=== PATIENT | male | born 1975 | race Caucasian/White ===

== ENCOUNTER 2023-02-28 07:52 | Inpatient (IN) | payer MEDICAID ==
[~2023-02-28] VITALS: Ht 180.3 cm; Wt 75.4 kg
[2023-02-28] MEDS: ACETAMINOPHEN 325MG TABLET PO ONE (08:15)
[2023-02-28 09:21] LABS: BASOPHILS % 0.5 % (0.0-2.0); DIFFERENTIAL COMMENT 0; EOSINOPHILS % 1.1 % (0.0-5.0); HEMATOCRIT. 43.8 % (42.0-52.0); HEMOGLOBIN. 14.8 g/dL (14.0-18.0); LYMPHOCYTES % 9.9 % (20.0-50.0); MEAN CORPUSCULAR HEMOGLOBIN 28.5 pg (28.0-32.0); MEAN CORPUSCULAR HGB CONC 33.8 g/dL (31.0-37.0); MEAN CORPUSCULAR VOLUME 84.3 fL (80.0-94.0); MEAN PLATELET VOLUME 7.4 fl (7.4-10.4); MONOCYTES % 12.3 % (2.0-8.0); NEUTROPHILS % 76.2 % (40.0-76.0); PLATELET 622 x1000/uL (130-400); RED BLOOD CELL COUNT 5.19 mill/uL (4.7-6.1); RED CELL DISTRIBUTION WIDTH 14.6 % (11.6-14.6); WHITE BLOOD COUNT 11.7 x1000/uL (4.5-11.0)
[2023-02-28 09:31] LABS: CHLORIDE 85 mEq/L (98-107); INDEX HEMOLYSI 1 (1-3); INDEX ICTERIC 1 (1-4); INDEX LIPEMIC 1 (1-3); POTASSIUM 3.7 mEq/L (3.5-5.1); SODIUM 125 mEq/L (136-145)
[2023-02-28 09:33] LABS: PROTHROMBIN TIME 10.3 sec (9.6-11.0)
[2023-02-28 09:40] LABS: ALANINE AMINOTRANSFERASE 137 IU/L (13-61); ALBUMIN 3.9 g/dL (3.4-5.0); ASPARTATE AMINOTRANSFERASE 200 IU/L (15-37); BILIRUBIN TOTAL 1.6 mg/dL (0.1-1.0); CALCIUM 9.5 mg/dL (8.5-10.1); CARBON DIOXIDE 33 mEq/L (21-32); CREATININE 1.1 mg/dL (0.6-1.3); GLUCOSE 113 mg/dL (70-105); PROTEIN TOTAL 8.9 g/dL (6.0-8.3); TROPONIN I HIGH SENSITIVITY 49 ng/L (<78); UREA NITROGEN BLOOD 17 mg/dL (7-21)
[2023-02-28] MEDS ORDERED: MAGNESIUM/ALUMINUM HYDROXIDE/SIMETHICONE 30ML UDC PO PRN (13:00)
[2023-02-28] MEDS ORDERED: SODIUM CHLORIDE 0.9% 1,000 ML IV ONE (13:00)
[2023-02-28] MEDS ORDERED: CLONIDINE 0.1MG TABLET PO PRN (13:00)
[2023-02-28] MEDS ORDERED: ACETAMINOPHEN 325MG TABLET PO PRN ×2 (13:00)
[2023-02-28] MEDS ORDERED: LORAZEPAM 0.5MG TABLET PO PRN (13:00)
[2023-02-28] MEDS ORDERED: ONDANSETRON HCL 4MG/2ML INJ IV PRN (13:00)
[2023-02-28] MEDS ORDERED: VANCOMYCIN 1.5GM/250ML IVPB 250 ML IV NR (13:30)
[2023-02-28] MEDS ORDERED: KETOROLAC 15MG/ML VIAL IV PRN (15:30)
[2023-02-28 15:49] LABS: AMMONIA 17 uMol/L (<32)
[2023-02-28 15:52] LABS: TROPONIN I HIGH SENSITIVITY 37 ng/L (<78)
[2023-02-28] MEDS ORDERED: VANCOMYCIN 750MG PREMIX 150 ML IV SCH (21:00)
[2023-02-28] MEDS: QUETIAPINE FUMARATE 50MG TABLET PO SCH (21:00)
[2023-03-01] MEDS ORDERED: VANCOMYCIN 1G PREMIX 200 ML IV SCH ×2 (04:00→23:00)
[2023-03-01] MEDS ORDERED: PIPERACILLIN/TAZOBACTAM 3.375G in DEXT 5% WATER 50ML IV SCH (06:00)
[2023-03-01] MEDS: PANTOPRAZOLE SODIUM 40 MG/VIAL IV SCH ×2 (09:00→09:52)
[2023-03-01] MEDS: QUETIAPINE FUMARATE 50MG TABLET PO SCH ×2 (09:53→20:54)
[2023-03-01] MEDS: ENOXAPARIN 40MG/0.4ML SYR SUBCUT SCH ×2 (09:53→13:21)
[2023-03-01] MEDS: PIPERACILLIN/TAZ 3.375G PREMIX 50 ML IV SCH ×2 (10:07→10:10)
[2023-03-01] MEDS ORDERED: DEXT 5%/0.9% NACL 1,000 ML IV ONE (11:15)
[2023-03-01 12:10] VITALS: BP 125/88; PULSE 96; RESP 18; TEMP 97.8
[2023-03-01 12:22] VITALS: BP 125/88; PULSE 96; RESP 18; TEMP 97.8
[2023-03-01] MEDS ORDERED: QUET100T PO (13:11)
[2023-03-01] MEDS ORDERED: VANCOMYCIN 1.25GM PMX (XELLIA) 250 ML IV NR (14:00)
[2023-03-01 16:00] VITALS: BP 133/88; PULSE 98; RESP 18; TEMP 97.7
[2023-03-01 16:05] LABS: CLARITY URINE CLEAR (CLEAR); COLOR URINE YELLOW (YELLOW); GLUCOSE URINE NEGATIVE (NEGATIVE); KETONES URINE 2+ (NEGATIVE); LEUKOCYTE ESTERASE URINE NEGATIVE (NEGATIVE); NITRITE URINE NEGATIVE (NEGATIVE); OCCULT BLOOD URINE TRACE (NEGATIVE); PH URINE 5.5 (4.5-8.0); PROTEIN URINE NEGATIVE (NEGATIVE); SPECIFIC GRAVITY URINE 1.014 (1.005-1.030); UROBILINOGEN URINE 0.2 E.U./dL (0.2-1.0)
[2023-03-01 17:12] LABS: BACTERIA URINE 1+; RBC URINE 0-2 /hpf (0-2); SQUAMOUS EPITHELIAL CELL URINE RARE /lpf (RARE/1+); WBC URINE 0-2 /hpf (0-2)
[2023-03-01 17:19] LABS: SODIUM URINE RANDOM 6 mEq/L
[2023-03-01 17:27] LABS: *AMPHETAMINES SCREEN URINE NEGATIVE (NEGATIVE); *BARBITURATES SCREEN URINE NEGATIVE (NEGATIVE); *BENZODIAZEPINES SCREEN URINE NEGATIVE (NEGATIVE); *COCAINE SCREEN URINE PRESUMTIVE POSITIVE (NEGATIVE); CANNABINOID URINE SCREEN PRESUMTIVE POSITIVE (NEGATIVE); ECSTASY MDMA SCREEN URINE NEGATIVE (NEGATIVE); METHADONE URINE SCREEN NEGATIVE (NEGATIVE); OPIATES URINE SCREEN NEGATIVE (NEGATIVE); PHENCYCLIDINE URINE SCREEN NEGATIVE (NEGATIVE)
[2023-03-01 17:41] LABS: OSMOLALITY URINE 483 mOsm/kg (500-850)
[2023-03-01 17:56] LABS: HEMATOCRIT 41.3 % (42.0-52.0); HEMOGLOBIN 13.8 g/dL (14.0-18.0); MEAN CORPUSCULAR HEMOGLOBIN 28.3 pg (28.0-32.0); MEAN CORPUSCULAR HGB CONC 33.5 g/dL (31.0-37.0); MEAN CORPUSCULAR VOLUME 84.4 fL (80.0-94.0); PLATELET 548 x1000/uL (130-400); RED BLOOD CELL COUNT 4.89 mill/uL (4.7-6.1); RED CELL DISTRIBUTION WIDTH 14.7 % (11.6-14.6); WHITE BLOOD COUNT 12.2 x1000/uL (4.5-11.0)
[2023-03-01 18:11] LABS: CHLORIDE 89 mEq/L (98-107); INDEX HEMOLYSI 1 (1-3); INDEX ICTERIC 1 (1-4); INDEX LIPEMIC 1 (1-3); POTASSIUM 3.6 mEq/L (3.5-5.1); SODIUM 126 mEq/L (136-145)
[2023-03-01 18:18] LABS: CARBON DIOXIDE 28 mEq/L (21-32); CREATININE 0.9 mg/dL (0.6-1.3); GLUCOSE 78 mg/dL (70-105); PHOSPHORUS 4.1 mg/dL (2.5-4.9); UREA NITROGEN BLOOD 18 mg/dL (7-21)
[2023-03-01] MEDS: SODIUM CHLORIDE 0.9% 1,000 ML IV SCH (18:29)
[2023-03-01] MEDS ORDERED: METOCLOPRAMIDE HCL 5MG TABLET PO PRN (18:30)
[2023-03-01 20:00] VITALS: BP 172/113; PULSE 101; RESP 20; TEMP 97.9
[2023-03-01] MEDS: PIPERACILLIN/TAZOBACTAM 3.375G in DEXT 5% WATER 50ML IV SCH (22:54)
[2023-03-02] VITALS: BP 107/66; PULSE 88; RESP 20; TEMP 97.5
[2023-03-02] MEDS ORDERED: VANCOMYCIN 1G PREMIX 200 ML IV SCH ×2 (02:00→21:00)
[2023-03-02 04:00] VITALS: BP 132/89; PULSE 91; RESP 20; TEMP 96.3
[2023-03-02] MEDS: PIPERACILLIN/TAZOBACTAM 3.375G in DEXT 5% WATER 50ML IV SCH (06:37)
[2023-03-02] MEDS: SODIUM CHLORIDE 0.9% 1,000 ML IV SCH ×2 (06:37→20:24)
[2023-03-02 07:41] LABS: HEMATOCRIT. 42.6 % (42.0-52.0); HEMOGLOBIN. 14.4 g/dL (14.0-18.0); MEAN CORPUSCULAR HEMOGLOBIN 28.8 pg (28.0-32.0); MEAN CORPUSCULAR HGB CONC 33.9 g/dL (31.0-37.0); MEAN PLATELET VOLUME 7.4 fl (7.4-10.4); PLATELET 518 x1000/uL (130-400); RED BLOOD CELL COUNT 5.02 mill/uL (4.7-6.1); RED CELL DISTRIBUTION WIDTH 14.7 % (11.6-14.6); WHITE BLOOD COUNT 12.1 x1000/uL (4.5-11.0)
[2023-03-02 08:00] VITALS: BP 108/70; PULSE 102; RESP 20; TEMP 97.3
[2023-03-02 08:14] LABS: DIFFERENTIAL COMMENT 1
[2023-03-02 08:21] LABS: CHLORIDE 90 mEq/L (98-107); INDEX HEMOLYSI 3 (1-3); INDEX ICTERIC 1 (1-4); INDEX LIPEMIC 1 (1-3); SODIUM 126 mEq/L (136-145)
[2023-03-02 08:31] LABS: ALANINE AMINOTRANSFERASE 89 IU/L (13-61); ALBUMIN 3.4 g/dL (3.4-5.0); ASPARTATE AMINOTRANSFERASE 79 IU/L (15-37); BILIRUBIN TOTAL 1.1 mg/dL (0.1-1.0); CALCIUM 9.2 mg/dL (8.5-10.1); CARBON DIOXIDE 26 mEq/L (21-32); CREATININE 0.9 mg/dL (0.6-1.3); GLUCOSE 116 mg/dL (70-105); PHOSPHORUS 3.8 mg/dL (2.5-4.9); PROTEIN TOTAL 7.4 g/dL (6.0-8.3); UREA NITROGEN BLOOD 18 mg/dL (7-21)
[2023-03-02] MEDS: QUETIAPINE FUMARATE 50MG TABLET PO SCH ×2 (09:00→20:24)
[2023-03-02] MEDS ORDERED: INFLUENZA VACCINE 05/PF 0.5 ML SYRINGE IM ONE (09:00)
[2023-03-02] MEDS: PANTOPRAZOLE SODIUM 40 MG/VIAL IV SCH (09:08)
[2023-03-02 12:00] VITALS: BP 114/78; PULSE 74; RESP 17; TEMP 97.9
[2023-03-02] MEDS: ENOXAPARIN 40MG/0.4ML SYR SUBCUT SCH (12:15)
[2023-03-02 16:00] VITALS: BP 127/79; PULSE 85; RESP 18; TEMP 96.9
[2023-03-02 16:38] LABS: T4 FREE 1.49 ng/dL (0.76-1.46); THYROID STIMULATING HORMONE 1.1 uIU/mL (0.36-3.74)
[2023-03-02 17:11] LABS: PLATELET ESTIMATE INCREASED
[2023-03-02 20:00] VITALS: BP 123/77; PULSE 92; RESP 18; TEMP 97.6
[2023-03-03] VITALS: BP 129/80; PULSE 87; RESP 18; TEMP 98
[2023-03-03 04:00] VITALS: BP 127/84; PULSE 77; RESP 18; TEMP 98.6
[2023-03-03 06:31] LABS: HEMATOCRIT. 36.4 % (42.0-52.0); HEMOGLOBIN. 12.4 g/dL (14.0-18.0); MEAN CORPUSCULAR HEMOGLOBIN 28.9 pg (28.0-32.0); MEAN CORPUSCULAR HGB CONC 34.2 g/dL (31.0-37.0); MEAN CORPUSCULAR VOLUME 84.6 fL (80.0-94.0); MEAN PLATELET VOLUME 7.2 fl (7.4-10.4); PLATELET 535 x1000/uL (130-400); RED CELL DISTRIBUTION WIDTH 14.6 % (11.6-14.6); WHITE BLOOD COUNT 9.2 x1000/uL (4.5-11.0)
[2023-03-03 06:40] LABS: DIFFERENTIAL COMMENT 1
[2023-03-03 06:50] LABS: CHLORIDE 95 mEq/L (98-107); INDEX HEMOLYSI 1 (1-3); INDEX ICTERIC 1 (1-4); INDEX LIPEMIC 1 (1-3); POTASSIUM 3.8 mEq/L (3.5-5.1); SODIUM 133 mEq/L (136-145)
[2023-03-03 06:58] LABS: CARBON DIOXIDE 30 mEq/L (21-32); GLUCOSE 100 mg/dL (70-105); PHOSPHORUS 3.1 mg/dL (2.5-4.9); UREA NITROGEN BLOOD 14 mg/dL (7-21)
[2023-03-03 08:00] VITALS: BP 111/71; PULSE 76; RESP 17; TEMP 97
[2023-03-03] MEDS: PANTOPRAZOLE SODIUM 40 MG/VIAL IV SCH (09:31)
[2023-03-03] MEDS: QUETIAPINE FUMARATE 50MG TABLET PO SCH (09:31)
[2023-03-03 12:00] VITALS: BP 104/62; PULSE 91; RESP 19; TEMP 97
[2023-03-03 14:32] LABS: PLATELET ESTIMATE INCREASED
[2023-03-03] MEDS: ENOXAPARIN 40MG/0.4ML SYR SUBCUT SCH (16:40)
[2023-03-03 17:21] VITALS: BP 117/71; PULSE 76; TEMP 97; O2SAT 98
== END 2023-03-03 17:50 | disposition home or self-care (01) | DRG 720 ==
LOC: ER 08:24 → 8WST 10:59 → EDBEDREQ 12:16 → ER 19:30 → 7WST 21:39 → UNDOADMIN 21:39 → UNDODISIN 03-01 04:47
PROVIDERS: ADMIT Hospitalist; ATTEND Hospitalist
DX: A41.9 Sepsis, unspecified organism (principal); G92.8 Other toxic encephalopathy; E87.1 Hypo-osmolality and hyponatremia; F25.9 Schizoaffective disorder, unspecified; K56.7 Ileus, unspecified; K80.20 Calculus of gallbladder without cholecystitis without obstruction; D75.839 Thrombocytosis, unspecified; E78.5 Hyperlipidemia, unspecified; K52.9 Noninfective gastroenteritis and colitis, unspecified; R73.03 Prediabetes; R74.01 Elevation of levels of liver transaminase levels; E87.8 Other disorders of electrolyte and fluid balance, not elsewhere classified; K82.8 Other specified diseases of gallbladder; Z90.49 Acquired absence of other specified parts of digestive tract; Z91.83 Wandering in diseases classified elsewhere
CPT/HCPCS: 36415; 71045; 74018; 74176; 76705; 80048; 80053; 80061; 80305; 80320; 81003; 82140; 82533; 83036; 83605; 83735; 83930; 83935; 84100; 84145; 84295; 84300; 84439; 84443; 84484; 85025; 85027; 90686; 93005; 97162; 99285; C9113; J1650; J1885; J2543; J3370; J7030; J7060; G0480